=== PATIENT | male | born 1995 | race Caucasian/White ===

== ENCOUNTER 2020-10-18 22:26 | Emergency (ER) | payer OTHER ==
[2020-10-18] MEDS ORDERED: Sodium Chloride 0.9% 1000 ML 1,000 ML IV STA (22:52)
--- NOTE | 2020-10-18 22:58 | ERPHSYRPT ---
- History of Present Illness Source: patient Exam Limitations: no limitations Patient Subjective Stated Complaint: pt states he has had fever and been feeling unwell for last 3 days. Triage Nursing Assessment: pt alert and oriented, answers questions approp. pt ambulatory with steady gait noted. respirations nonlabored with lungs cta. skin hot and dry. Physician History: 25 yo wm w subjective fever x3-4 days. Pt has myalgias but denies [facility]/ cough/N/V/D. He does have some mild dysuria wo hematuria. No other family members ill. Timing/Duration: other (3-4 days) Fever Severity: mild Fever Therapy BEHAVIORAL HEALTH CONSULTANT: none Associated Symptoms: muscle aches, No abdominal pain, No chest pain, No confusion, No cough, No diaphoresis, No headache, No nausea/vomiting, No rhinorrhea, No shortness of breath, No sore throat, No stiff neck, No syncope, No weakness Allergies/Adverse Reactions: No Known Drug Allergies Allergy (Verified 10/18/20 22:53) Home Medications: No Reportable Medications [No Reported Medications] 10/18/20 [History] Hx Tetanus, Diphtheria Vaccination/Date Given: Yes Hx Influenza Vaccination/Date Given: No Hx Pneumococcal Vaccination/Date Given: No Immunizations Up to Date: Yes Travel Risk - International Travel Have you traveled outside of the country in past 3 weeks: No - Coronavirus Screening Are you exhibiting any of the following symptoms?: Yes Symptoms: Fever Close contact with a COVID-19 positive Pt in past 14-21 Days: No - Vaccine Status Have you recieved a Covid-19 vaccination: No - Review of Systems Constitutional: No Symptoms, Fever, Chills Eyes: No Symptoms Ears, Nose, & Throat: No Symptoms Respiratory: No Symptoms Cardiac: No Symptoms Abdominal/Gastrointestinal: No Symptoms Genitourinary Symptoms: No Symptoms Musculoskeletal: No Symptoms Skin: No Symptoms Neurological: No Symptoms Psychological: No Symptoms Endocrine: No Symptoms Hematologic/Lymphatic: No Symptoms Immunological/Allergic: No Symptoms - Past Medical History Pertinent Past Medical History: No - Past Surgical History Past Surgical History: Yes Musculoskeletal: Orthopedic Surgery Other Surgical History: rt femur, lt humerus - Social History Smoking Status: Current every day smoker How long have you smoked: 5-6 yrs Exposure to second hand smoke: Yes Drug Use: none Significant Family History: no pertinent family hx - Nursing Vital Signs Nursing Vital Signs: Initial Vital Signs Temperature 100.0 F 10/18/20 22:37 Pulse Rate 107 H 10/18/20 22:37 Respiratory Rate 20 10/18/20 22:37 Blood Pressure 149/86 10/18/20 22:37 O2 Sat by Pulse Oximetry 99 10/18/20 22:37 Pain Scale Pain Intensity 5 - Physical Exam General Appearance: no apparent distress Eye Exam: PERRL/EOMI, eyes nml inspection ENT Exam: normal ENT inspection, no apparent trauma, TMs normal, pharynx normal, No nasal congestion, No nasal drainage Neck Exam: normal inspection, non-tender, supple, full range of motion, trachea midline, No Brudzinski's sign, No Kernig's sign Respiratory Exam: normal breath sounds, lungs clear, no respiratory distress Cardiovascular/Chest Exam: tachycardia (Mild), No murmur Gastrointestinal/Abdominal Exam: soft, non tender, no distention Extremity Exam: non-tender, normal range of motion Neurologic Exam: alert, oriented x 3, cooperative, 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, normal mood/affect, sensation nml, No motor deficits, No sensory deficit Skin Exam: normal color, warm, dry, No rash Lymphatic: No adenopathy SpO2 Interpretation: normal SpO2: 99 O2 Delivery: Room Air - Radiology Exams Chest X-ray Interpretation: Interpreted by me (CXR neg) Ordered Tests: Active Orders 24 hr Category Date Time Status CHEST 1 VIEW (PORTABLE) Stat Exams 10/18/20 22:53 Taken CBC W DIFF Stat Lab 10/18/20 23:35 Results CMP Stat Lab 10/18/20 23:35 Completed INFLUENZA A+B ZACH Stat Lab 10/18/20 23:06 Completed Lactic Acid Stat Lab 10/18/20 23:12 Completed Manual Differential NC Stat Lab 10/18/20 23:35 Results Reeves Screen Stat Lab 10/19/20 00:00 Completed Pathologist Review Stat Lab 10/18/20 23:35 Results UA W/RFX UR CULTURE Stat Lab 10/19/20 00:33 Completed Medication Summary Discontinued Medications Generic Name Dose Route Start Last Admin Trade Name Freq PRN Reason Stop Dose Admin Acetaminophen 1,000 mg 10/19/20 00:23 10/19/20 00:27 Tylenol Extra Strength 500 Mg PO 10/19/20 00:24 1,000 mg STAT ONE Administration Acetaminophen Confirm 10/19/20 00:24 Tylenol Extra Strength 500 Mg Administered 10/19/20 00:25 Dose 1,000 mg .ROUTE .STK-MED ONE Sodium Chloride 1,000 mls @ 999 mls/hr 10/18/20 22:52 10/19/20 01:20 Sodium Chloride 0.9% 1000 Ml IV 10/18/20 23:52 Infused .Q1H1M STA Infusion Sodium Chloride Confirm 10/18/20 23:28 Sodium Chloride 0.9% 1000 Ml Administered 10/18/20 23:29 Dose 1,000 mls @ ud .ROUTE .STK-MED ONE Sodium Chloride 1,000 mls @ 999 mls/hr 10/19/20 00:22 10/19/20 01:21 Sodium Chloride 0.9% 1000 Ml IV 10/19/20 01:22 Infused .Q1H1M STA Infusion Sodium Chloride Confirm 10/19/20 00:24 Sodium Chloride 0.9% 1000 Ml Administered 10/19/20 00:25 Dose 1,000 mls @ ud .ROUTE .STK-MED ONE Lab/Rad Data: Laboratory Result Diagrams 10/18/20 23:35 10/18/20 23:35 Laboratory Results 10/19/20 10/19/20 10/18/20 Range/Units 00:33 00:00 23:35 WBC (4.0-10.5) K/mm3 RBC (4.1-5.6) M/mm3 Hgb (12.5-18.0) gm/dl Hct (42-50) % MCV (78-100) fl MCH (26-32) pg MCHC (32-36) g/dl RDW (11.5-14.0) % Plt Count (150-450) K/mm3 MPV (7.5-11.0) fl Gran % (36.0-66.0) % Eos # (Auto) (0-0.5) Absolute Lymphs (auto) (1.0-4.6) Absolute Monos (auto) (0.0-1.3) Lymphocytes % (24.0-44.0) % Monocytes % (0.0-12.0) % Eosinophils % (0.00-5.0) % Basophils % (0.0-0.4) % Absolute Granulocytes (1.4-6.9) Segmented Neutrophils (36.-66.) % Band Neutrophils (0.0-2.0) % Lymphocytes (Manual) (24-44) % Monocytes (Manual) (0.0-12.0) % Basophils # (0-0.4) Atypical Lymphocytes % Platelet Estimate (NORMAL) RBC Morphology Smear Path Review Sodium 129 L (137-145) mmol/L Potassium 4.4 (3.5-5.1) mmol/L Chloride 96 L (98-107) mmol/L Carbon Dioxide 27 (22-30) mmol/L Anion Gap 10.8 (5-15) MEQ/L BUN 9 (9-20) mg/dL Creatinine 0.87 (0.66-1.25) mg/dL Estimated GFR > 60.0 ML/MIN Glucose 109 H (74-106) mg/dL Lactic Acid (0.4-2.0) Calcium 8.7 (8.4-10.2) mg/dL Total Bilirubin 1.10 (0.2-1.3) mg/dL AST 105 H (17-59) U/L ALT 102 H (0-50) U/L Alkaline Phosphatase 140 H (38-126) U/L Serum Total Protein 6.5 (6.3-8.2) g/dL Albumin 3.8 (3.5-5.0) g/dL Urine Color SOLOMON (YELLOW) Urine Appearance CLEAR (CLEAR) Urine pH 7.0 (5-6) Ur Specific [place] 1.025 (1.005-1.025) Urine Protein 100 (Negative) Urine Ketones NEGATIVE (NEGATIVE) Urine Blood NEGATIVE (0-5) Russ/ul Urine Nitrite NEGATIVE (NEGATIVE) Urine Bilirubin NEGATIVE (NEGATIVE) Urine Urobilinogen 4 (0-1) mg/dL Ur Leukocyte Esterase NEGATIVE (NEGATIVE) Urine WBC (Auto) NONE (0-5) /HPF Urine RBC (Auto) 0-2 (0-2) /HPF U Epithel Cells (Auto) NONE (FEW) /HPF Urine Bacteria (Auto) NONE SEEN (NEGATIVE) /HPF Urine Mucus (Auto) SLIGHT (NEGATIVE) /HPF Urine Culture Reflexed NO (NO) Urine Glucose NEGATIVE (NEGATIVE) mg/dL Monoscreen NEGATIVE (Negative) Influenza Type A Ag (NEGATIVE) Influenza Type B Ag (NEGATIVE) Group A Strep Antibody (NEGATIVE) 05/02/21 05/02/21 05/02/21 Range/Units 23:35 23:12 23:06 WBC 1.8 L* (4.0-10.5) K/mm3 RBC 4.54 (4.1-5.6) M/mm3 Hgb 12.8 (12.5-18.0) gm/dl Hct 38.3 L (42-50) % MCV 84.4 (78-100) fl MCH 28.2 (26-32) pg MCHC 33.4 (32-36) g/dl RDW 12.6 (11.5-14.0) % Plt Count 102 L (150-450) K/mm3 MPV 11.2 H (7.5-11.0) fl Gran % 76.0 H (36.0-66.0) % Eos # (Auto) 0 (0-0.5) Absolute Lymphs (auto) 0.18 L (1.0-4.6) Absolute Monos (auto) 0.23 (0.0-1.3) Lymphocytes % 10.3 L (24.0-44.0) % Monocytes % 13.1 H (0.0-12.0) % Eosinophils % 0.0 (0.00-5.0) % Basophils % 0.6 (0.0-0.4) % Absolute Granulocytes 1.33 L (1.4-6.9) Segmented Neutrophils 58 (36.-66.) % Band Neutrophils 17 H (0.0-2.0) % Lymphocytes (Manual) 12 L (24-44) % Monocytes (Manual) 12 (0.0-12.0) % Basophils # 0.01 (0-0.4) Atypical Lymphocytes 1 % Platelet Estimate NORMAL (NORMAL) RBC Morphology NORMAL Smear Path Review Pending Sodium (137-145) mmol/L Potassium (3.5-5.1) mmol/L Chloride (98-107) mmol/L Carbon Dioxide (22-30) mmol/L Anion Gap (5-15) MEQ/L BUN (9-20) mg/dL Creatinine (0.66-1.25) mg/dL Estimated GFR ML/MIN Glucose (74-106) mg/dL Lactic Acid 1.3 (0.4-2.0) Calcium (8.4-10.2) mg/dL Total Bilirubin (0.2-1.3) mg/dL AST (17-59) U/L ALT (0-50) U/L Alkaline Phosphatase (38-126) U/L Serum Total Protein (6.3-8.2) g/dL Albumin (3.5-5.0) g/dL Urine Color (YELLOW) Urine Appearance (CLEAR) Urine pH (5-6) Ur Specific [place] (1.005-1.025) Urine Protein (Negative) Urine Ketones (NEGATIVE) Urine Blood (0-5) Russ/ul Urine Nitrite (NEGATIVE) Urine Bilirubin (NEGATIVE) Urine Urobilinogen (0-1) mg/dL Ur Leukocyte Esterase (NEGATIVE) Urine WBC (Auto) (0-5) /HPF Urine RBC (Auto) (0-2) /HPF U Epithel Cells (Auto) (FEW) /HPF Urine Bacteria (Auto) (NEGATIVE) /HPF Urine Mucus (Auto) (NEGATIVE) /HPF Urine Culture Reflexed (NO) Urine Glucose (NEGATIVE) mg/dL Monoscreen (Negative) Influenza Type A Ag NEGATIVE (NEGATIVE) Influenza Type B Ag NEGATIVE (NEGATIVE) Group A Strep Antibody (NEGATIVE) 10/18/20 Range/Units 23:06 WBC (4.0-10.5) K/mm3 RBC (4.1-5.6) M/mm3 Hgb (12.5-18.0) gm/dl Hct (42-50) % MCV (78-100) fl MCH (26-32) pg MCHC (32-36) g/dl RDW (11.5-14.0) % Plt Count (150-450) K/mm3 MPV (7.5-11.0) fl Gran % (36.0-66.0) % Eos # (Auto) (0-0.5) Absolute Lymphs (auto) (1.0-4.6) Absolute Monos (auto) (0.0-1.3) Lymphocytes % (24.0-44.0) % Monocytes % (0.0-12.0) % Eosinophils % (0.00-5.0) % Basophils % (0.0-0.4) % Absolute Granulocytes (1.4-6.9) Segmented Neutrophils (36.-66.) % Band Neutrophils (0.0-2.0) % Lymphocytes (Manual) (24-44) % Monocytes (Manual) (0.0-12.0) % Basophils # (0-0.4) Atypical Lymphocytes % Platelet Estimate (NORMAL) RBC Morphology Smear Path Review Sodium (137-145) mmol/L Potassium (3.5-5.1) mmol/L Chloride (98-107) mmol/L Carbon Dioxide (22-30) mmol/L Anion Gap (5-15) MEQ/L BUN (9-20) mg/dL Creatinine (0.66-1.25) mg/dL Estimated GFR ML/MIN Glucose (74-106) mg/dL Lactic Acid (0.4-2.0) Calcium (8.4-10.2) mg/dL Total Bilirubin (0.2-1.3) mg/dL AST (17-59) U/L ALT (0-50) U/L Alkaline Phosphatase (38-126) U/L Serum Total Protein (6.3-8.2) g/dL Albumin (3.5-5.0) g/dL Urine Color (YELLOW) Urine Appearance (CLEAR) Urine pH (5-6) Ur Specific [place] (1.005-1.025) Urine Protein (Negative) Urine Ketones (NEGATIVE) Urine Blood (0-5) Russ/ul Urine Nitrite (NEGATIVE) Urine Bilirubin (NEGATIVE) Urine Urobilinogen (0-1) mg/dL Ur Leukocyte Esterase (NEGATIVE) Urine WBC (Auto) (0-5) /HPF Urine RBC (Auto) (0-2) /HPF U Epithel Cells (Auto) (FEW) /HPF Urine Bacteria (Auto) (NEGATIVE) /HPF Urine Mucus (Auto) (NEGATIVE) /HPF Urine Culture Reflexed (NO) Urine Glucose (NEGATIVE) mg/dL Monoscreen (Negative) Influenza Type A Ag (NEGATIVE) Influenza Type B Ag (NEGATIVE) Group A Strep Antibody NOT DETECTED (NEGATIVE) - Progress Counseled pt/family regarding: diagnosis, need for follow-up, rad results - Departure Departure Disposition: Home Clinical Impression: Viral illness Condition: Stable Critical Care Time: No Referrals: DOCTOR,NO FAMILY [Primary Care Provider] - Instructions: Fever, Adult (DC) Additional Instructions: Follow up with your family MD in 1-2 days Fluids/Rest Return to ER as needed
[2020-10-18 23:26] LABS: INFLUENZA A NEGATIVE (NEGATIVE); INFLUENZA B NEGATIVE (NEGATIVE)
[2020-10-18] MEDS ORDERED: Sodium Chloride 0.9% 1000 ML 1,000 ML ONE (23:28)
[2020-10-18 23:57] LABS: Absolute Neutrophil Ct (ANC) 1.33 (1.4-6.9); BASOPHIL % 0.6 % (0.0-0.4); Basophil (Absolute #) 0.01 (0-0.4); Eosinophil (Absolute #) 0 (0-0.5); Hematocrit 38.3 % (42-50); Hemoglobin 12.8 gm/dl (12.5-18.0); Lymphocyte (Absolute #) 0.18 (1.0-4.6); Lymphocytes % 10.3 % (24.0-44.0); Mean Cell Volume 84.4 fl (78-100); Mean Corpuscular Hemoglobin 28.2 pg (26-32); Mean Corpuscular Hgb Concent. 33.4 g/dl (32-36); Mean Platelet Volume 11.2 fl (7.5-11.0); Monocyte (Absolute #) 0.23 (0.0-1.3); Monocytes % 13.1 % (0.0-12.0); Platelet Count 102 K/mm3 (150-450); Red Blood Count 4.54 M/mm3 (4.1-5.6); Red Cell Distribution Width 12.6 % (11.5-14.0)
[2020-10-19 00:01] LABS: White Blood Count 1.8 K/mm3 (4.0-10.5)
[2020-10-19 00:09] LABS: ALBUMIN 3.8 g/dL (3.5-5.0); ALKALINE PHOSPHATASE 140 U/L (38-126); ANION GAP 10.8 MEQ/L (5-15); BLOOD UREA NITROGEN 9 mg/dL (9-20); CHLORIDE 96 mmol/L (98-107); Calcium 8.7 mg/dL (8.4-10.2); Carbon Dioxide 27 mmol/L (22-30); Creatinine 1 0.87 mg/dL (0.66-1.25); EST GLOMERULAR FILTRATION RATE > 60.0 ML/MIN; Glucose 109 mg/dL (74-106); Potassium 4.4 mmol/L (3.5-5.1); SGOT/AST 105 U/L (17-59); SGPT/ALT 102 U/L (0-50); SODIUM 129 mmol/L (137-145); Total Protein 6.5 g/dL (6.3-8.2)
[2020-10-19] MEDS ORDERED: Sodium Chloride 0.9% 1000 ML 1,000 ML IV STA (00:22)
[2020-10-19] MEDS ORDERED: TYLENOL EXTRA STRENGTH 500 MG PO ONE (00:23)
[2020-10-19] MEDS ORDERED: TYLENOL EXTRA STRENGTH 500 MG ONE (00:24)
[2020-10-19] MEDS ORDERED: Sodium Chloride 0.9% 1000 ML 1,000 ML ONE (00:24)
[2020-10-19 00:46] LABS: Appearance CLEAR (CLEAR); Bilirubin NEGATIVE (NEGATIVE); Blood NEGATIVE Ery/ul (0-5); Glucose NEGATIVE (NEGATIVE); Ketones NEGATIVE (NEGATIVE); Leukocyte Esterase NEGATIVE (NEGATIVE); Mucus SLIGHT /HPF (NEGATIVE); Nitrite NEGATIVE (NEGATIVE); Protein,Urine Dip 100 (Negative); RBC 0-2 /HPF (0-2); Specific Gravity 1.025 (1.005-1.025); Urobilinogen 4 mg/dL (0-1)
[2020-10-19 00:49] LABS: ATYPICAL LYMPHS 1 %; BAND 17 % (0.0-2.0); Lymphocytes 12 % (24-44); Monocyte 12 % (0.0-12.0); Neutrophils 58 % (36.-66.); Total Cells Counted 100
[2020-10-19 00:50] LABS: Platelet Estimate NORMAL (NORMAL)
[2020-10-19 00:51] LABS: Bacteria NONE SEEN /HPF (NEGATIVE)
[2020-10-19 02:10] VITALS: BP 136/79; PULSE 98; O2SAT 99
--- NOTE | 2020-10-19 09:03 | XRAY ---
Indication: Fever. Comparison: None Portable apical lordotic chest demonstrates normal heart, lungs, and bony thorax with incidental tiny calcified granulomas.
== END 2020-10-19 02:09 | disposition home or self-care (01) ==
LOC: ED 22:26
DX: B34.9 Viral infection, unspecified (principal)
CPT/HCPCS: 36415; 71045; 80053; 80074; 81001; 83605; 85025; 86308; 87400; 87651; 96360; 96361; 99284; U0003; A9270-GY